=== PATIENT | male | born 1945 | race Two or more races ===

== ENCOUNTER 2017-05-28 11:48 | Emergency (ER) | payer OTHER ==
[~2017-05-28] VITALS: Ht 177.8 cm; Wt 90.7 kg
--- NOTE | 2017-05-28 11:55 | NUR ---
[facility] CALLED,SPOKE WITH AMANDEEP BLUE,IMAGING AND LAB RESULTS REQUESTED
--- NOTE | 2017-05-28 11:55 | NUR ---
aaox3, bibra from home c/o left foot pain radiates to lower back. cms wnl. rr is even and unlabored with nad noted. patient was seen at [place] last night for same reason. Dr Murray at for eval.
--- NOTE | 2017-05-28 12:36 | NUR ---
CARITO NICHOLSP,HERB BLUE, CALLED FOR DR TINY KRUEGER
--- NOTE | 2017-05-28 12:44 | NUR ---
DR WINSTON AT TALKING TO FAMILY.
[2017-05-28] MEDS ORDERED: HYDROCODONE/APAP 10/325MG 1 EA TABLET ONE (12:58)
[2017-05-28] MEDS: HYDROCODONE/APAP 10/325MG 1 EA TABLET PO ONE (12:59)
--- NOTE | 2017-05-28 13:33 | NUR ---
[facility] CALLED PATIENT WILL BE TRANSFERED TO [facility] ER ACCEPTING DR CASTILLO. NUMBER TO GIVE REPORT BLS ETA [id number]
--- NOTE | 2017-05-28 14:26 | NUR ---
REPORT GIVEN TO SU CRUMP FOR [facility] GOING TO [facility].
[2017-05-28 14:27] VITALS: BP 123/65
--- NOTE | 2017-05-28 14:53 | NUR ---
Patient discharged to [facility] GOING TO [facility] in stable condition. Written and verbal after care instructions given. Patient AND EMT verbalized understanding of instruction.
== END 2017-05-28 14:57 | disposition short-term general hospital (02) ==
LOC: ER 11:51
DX: G62.9 Polyneuropathy, unspecified (principal); R53.1 Weakness; I10 Essential (primary) hypertension; E11.9 Type 2 diabetes mellitus without complications; Z86.73 Personal history of transient ischemic attack (TIA), and cerebral infarction without residual deficits; Z88.8 Allergy status to other drugs, medicaments and biological substances
CPT/HCPCS: A4606; Z7610